=== PATIENT | female | born 1960 | race Caucasian/White ===

== ENCOUNTER 2017-11-18 10:13 | Emergency (ER) | payer OTHER ==
[~2017-11-18] VITALS: Ht 152.4 cm; Wt 80.7 kg
[2017-11-18 10:16] VITALS: BP 111/68
[2017-11-18 11:18] VITALS: BP 114/69
== END 2017-11-18 11:17 | disposition home or self-care (01) ==
LOC: MED 10:13
DX: S61.210D Laceration without foreign body of right index finger without damage to nail, subsequent encounter (principal); Z48.02 Encounter for removal of sutures; X58.XXXD Exposure to other specified factors, subsequent encounter
CPT/HCPCS: 99283

== ENCOUNTER 2017-11-28 10:43 | Emergency (ER) | payer OTHER ==
[~2017-11-28] VITALS: Ht 154.9 cm; Wt 81.2 kg
[2017-11-28 10:52] VITALS: BP 137/76
--- NOTE | 2017-11-28 10:55 | NUR ---
Patient ambulated to bed 7 with family. RN evaluating patient at bedside.
--- NOTE | 2017-11-28 10:58 | NUR ---
REPORT GIVEN TO ARIEL GARCIA
--- NOTE | 2017-11-28 11:00 | NUR ---
57Y/F BIB DAUGHTER CAME IN TO ER FOR RECHECK OF LACERATION ON RT HAND ON 11/16/2017.AAOX4 WITH EVEN AND STEADY GAIT; PATIENT STATES PAIN OF 2/10 AT THIS TIME; VSS; PATIENT POSITIONED FOR COMFORT; HOB ELEVATED; BEDRAILS UP X1; BED DOWN. ER MD MADE AWARE OF PT STATUS.
--- NOTE | 2017-11-28 11:29 | NUR ---
Patient being evaluated by physician at bedside.
--- NOTE | 2017-11-28 11:55 | NUR ---
Patient discharged with v/s stable. Written and verbal after care instructions given and explained. Patient verbalized understanding. Ambulatory with steady gait. All questions addressed prior to discharge. Advised to follow up with PMD.
[2017-11-28 11:57] VITALS: BP 120/62
== END 2017-11-28 11:55 | disposition home or self-care (01) ==
LOC: MED 10:43
DX: T81.30XA Disruption of wound, unspecified, initial encounter (principal); E11.9 Type 2 diabetes mellitus without complications; Z88.8 Allergy status to other drugs, medicaments and biological substances; Z88.5 Allergy status to narcotic agent
CPT/HCPCS: 12021; 99284